=== PATIENT | male | born 1995 | race Caucasian/White ===

== ENCOUNTER 2022-07-05 11:03 | Emergency (ER) | payer OTHER, SELFPAY ==
[2022-07-05 11:10] VITALS: BP 153/86; PULSE 107; RESP 16; TEMP 36.3; O2SAT 98
--- NOTE | 2022-07-05 11:32 | ED.URI ---
HPI - URI/Sore Throat General Chief Complaint: Nausea/Vomiting/Diarrhea Stated Complaint: flu symptoms Time Seen by Provider: 07/05/22 11:20 Source: patient and RN notes reviewed History of Present Illness HPI Narrative: Patient is a 27-year-old male who presents to urgent care with complaints of diarrhea, nausea and body aches for 3 days. Patient states that the last thing he ate prior to symptoms starting was tacos. States that he came in today for a work note. States that his symptoms have nearly resolved. Denies any abdominal pain, fever, vomiting. No other acute complaints. No acute distress noted. Patient aware of the plan of care. Some parts of this dictation were generated by voice recognition software and may contain typographical and/or grammatical inaccuracies. Related Data Allergies Allergy/AdvReac Type Severity Reaction Status Date / Time No Known Allergies Allergy Verified 07/05/22 11:39 Review of Systems Review of Systems: CONSTITUTIONAL: Denies fever, chills, or sweats. EYES: Denies visual changes, redness, or discharge. ENT: Denies rhinorrhea, congestion, sore throat, or otalgia. CARDIOVASCULAR: Denies chest pain, palpitations, or edema. RESPIRATORY: Denies cough or dyspnea. GASTROINTESTINAL: Reports of resolving nausea, vomiting and diarrhea GENITOURINARY: Denies dysuria or hematuria. SKIN: Denies rash or itching. MUSCULOSKELETAL: Denies back pain, joint pain, or myalgia. NEUROLOGIC: Denies headache, numbness, or weakness. All other systems reviewed are negative, except as documented in HPI. PMFSH Comments At the time of my signature, I reviewed and agree with the nursing past medical, surgical, social, and family history. There is no relevant family history pertinent to the patient complaint. Exam Narrative: GENERAL: This is a well-nourished, well-developed patient, in no apparent distress. HEAD: normocephalic, atraumatic. EYES: PERRL. Sclera clear/white. Vision is grossly intact. EARS: External ears normal, auditory canals clear and without drainage, TMs normal without perforation. Hearing grossly intact. NOSE: External nose normal with no obvious nasal discharge, nares without redness, no rhinorrhea. THROAT: Mucous membranes moist, posterior pharynx clear. Mild postnasal drainage NECK: Neck supple, non-tender CARDIOVASCULAR: Regular rate and rhythm RESPIRATORY: Clear to auscultation. Breath sounds equal bilaterally. No wheezes, rales, or rhonchi. GASTROINTESTINAL: Abdomen soft, mild lower abdominal tenderness, nondistended. Bowel sounds are active. SKIN: warm, intact with no suspicious lesions or rash, good texture and turgor. NEURO: awake, alert, and oriented to person, place and time. There were no obvious focal neurologic abnormalities. EXTREMITIES: No clubbing, cyanosis, or edema. Course Course Level of Care: Express Care Visit Vital Signs Vital signs: Vital Signs Temperature 97.3 F L 07/05/22 11:10 Pulse Rate 107 H 07/05/22 11:10 Respiratory Rate 16 07/05/22 11:10 Blood Pressure 153/86 H 07/05/22 11:10 Pulse Oximetry 98 07/05/22 11:10 Oxygen Delivery Room Air 07/05/22 11:10 Temperature 97.3 F L 07/05/22 11:10 Pulse Rate 107 H 07/05/22 11:10 Respiratory Rate 16 07/05/22 11:10 Blood Pressure 153/86 H 07/05/22 11:10 Pulse Oximetry 98 07/05/22 11:10 Oxygen Delivery Room Air 07/05/22 11:10 Reviewed- Patient is informed that they may have pre-hypertension or hypertension based on a blood pressure reading in the department. I recommend the patient call the primary care provider listed on their discharge instructions or a physician of their choice this week to arrange follow-up for further evaluation of possible pre-hypertension or hypertension. MDM - URI/Sore Throat MDM Narrative Medical decision making narrative: Advised patient to eat a bland diet for the next 3-5 days and increase water intake. Use [id number] Pepto-Bismol or Imodium as need
== END 2022-07-05 11:55 | disposition home or self-care (01) ==
PROVIDERS: Emergency Provider Nurse Practitioner Family; PCP Family Medicine
DX: K52.9 Noninfective gastroenteritis and colitis, unspecified (principal)
CPT/HCPCS: 99213; G0463

== ENCOUNTER 2022-09-21 18:51 | Emergency (ER) | payer OTHER, SELFPAY ==
--- NOTE | 2022-09-21 18:53 | ED.URI ---
HPI - URI/Sore Throat General Chief Complaint: Upper Respiratory Infection Stated Complaint: wheezing / sob Time Seen by Provider: 09/21/22 18:53 Source: patient and RN notes reviewed History of Present Illness HPI Narrative: Patient is a 27-year-old male who presents to urgent care with complaints of congestion, wheezing and shortness of breath. Patient states that for approximately 2 weeks he had a lot of nasal congestion and sinus pressure. Patient states that last night he developed wheezing some shortness of breath. Patient has been taking DayQuil and NyQuil. Denies any fevers. States that he also forgot to take his blood pressure medication this morning. Denies any chest discomfort. No other acute complaints. No acute distress noted. Patient aware of the plan of care. Some parts of this dictation were generated by voice recognition software and may contain typographical and/or grammatical inaccuracies. Related Data Home Medications Medication Instructions Recorded Confirmed lisinopril 10 mg tablet 10 mg PO DAILY 09/21/22 09/21/22 Allergies Allergy/AdvReac Type Severity Reaction Status Date / Time No Known Allergies Allergy Verified 09/21/22 18:59 Review of Systems Review of Systems: CONSTITUTIONAL: Denies fever, chills, or sweats. EYES: Denies visual changes, redness, or discharge. ENT: Reports postnasal drainage and sinus congestion CARDIOVASCULAR: Denies chest pain, palpitations, or edema. RESPIRATORY: Reports dry cough, wheezing and shortness of breath GASTROINTESTINAL: Denies abdominal pain, nausea, vomiting, or diarrhea. GENITOURINARY: Denies dysuria or hematuria. SKIN: Denies rash or itching. MUSCULOSKELETAL: Denies back pain, joint pain, or myalgia. NEUROLOGIC: Denies headache, numbness, or weakness. All other systems reviewed are negative, except as documented in HPI. PMFSH Comments At the time of my signature, I reviewed and agree with the nursing past medical, surgical, social, and family history. There is no relevant family history pertinent to the patient complaint. Exam Narrative: GENERAL: This is a well-nourished, well-developed patient, in no apparent distress. HEAD: normocephalic, atraumatic. EYES: PERRL. Sclera clear/white. Vision is grossly intact. EARS: External ears normal, auditory canals clear and without drainage, TMs normal without perforation. Hearing grossly intact. NOSE: External nose normal with no obvious nasal discharge, nares without redness, no rhinorrhea. THROAT: Mucous membranes moist, moderate postnasal drainage NECK: Neck supple CARDIOVASCULAR: Regular rate and rhythm RESPIRATORY: Inspiratory and expiratory wheezes throughout with dry cough noted on exam. SKIN: warm, intact with no suspicious lesions or rash, good texture and turgor. NEURO: awake, alert, and oriented to person, place and time. There were no obvious focal neurologic abnormalities. EXTREMITIES: No clubbing, cyanosis, or edema. Course Course Level of Care: Express Care Visit Vital Signs Vital signs: Vital Signs Temperature 99.8 F H 09/21/22 18:58 Pulse Rate 119 H 09/21/22 18:58 Respiratory Rate 20 09/21/22 18:58 Blood Pressure 190/102 H 09/21/22 18:58 Pulse Oximetry 95 09/21/22 18:58 Oxygen Delivery Room Air 09/21/22 18:58 Temperature 99.8 F H 09/21/22 18:58 Pulse Rate 119 H 09/21/22 18:58 Respiratory Rate 20 09/21/22 18:58 Blood Pressure 190/102 H 09/21/22 18:58 Pulse Oximetry 95 09/21/22 18:58 Oxygen Delivery Room Air 09/21/22 18:58 Reviewed- Patient is informed that they may have pre-hypertension or hypertension based on a blood pressure reading in the department. I recommend the patient call the primary care provider listed on their discharge instructions or a physician of their choice this week to arrange follow-up for further evaluation of possible pre-hypertension or hypertension. MDM - URI/Sore Throat MDM Narrative Medical decision
[2022-09-21 18:58] VITALS: BP 190/102; PULSE 119; RESP 20; TEMP 37.7; O2SAT 95
== END 2022-09-21 19:15 | disposition home or self-care (01) ==
PROVIDERS: Emergency Provider Nurse Practitioner Family; PCP Family Medicine
DX: J40 Bronchitis, not specified as acute or chronic (principal); I10 Essential (primary) hypertension; Z86.16 Personal history of COVID-19
CPT/HCPCS: 99213; G0463

== ENCOUNTER 2022-10-13 14:00 | Emergency (ER) | payer OTHER, SELFPAY ==
[2022-10-13 14:05] VITALS: BP 142/84; PULSE 102; RESP 16; TEMP 36.3; O2SAT 98
--- NOTE | 2022-10-13 14:13 | ED.ABDPAIN ---
HPI - Abdominal Pain General Chief Complaint: Abdominal Pain Stated Complaint: Diarrhea/Abdominal Pain Source: patient and RN notes reviewed History of Present Illness HPI narrative: 27 yo M presents to urgent care with complaints of diarrhea x 4 days. Pt states his girlfriend had this too but hers resolved after a couple days. Pt reports associated mid abdominal cramping. Pt states he had some nausea the other day. Denies any fevers, chills, vomiting, chest pain, SOB, or dizziness. Pt has attempted taking Pepto Bismol and anti-diarrheal meds at home without relief. Pt does state he was on doxycycline a couple weeks ago. Related Data Home Medications Medication Instructions Recorded Confirmed lisinopril 10 mg tablet 10 mg PO DAILY 09/21/22 10/13/22 loratadine 10 mg tablet (Claritin) 10 mg PO DAILY 10/13/22 10/13/22 Allergies Allergy/AdvReac Type Severity Reaction Status Date / Time No Known Allergies Allergy Verified 10/13/22 14:17 Review of Systems Review of Systems: Pertinent positives and pertinent negatives per HPI. PMFSH Comments At the time of my signature, I reviewed and agree with the nursing past medical, surgical, social, and family history. There is no relevant family history pertinent to the patient complaint. Exam Narrative: GENERAL: This is a well-nourished, well-developed patient, in no apparent distress. HEAD: normocephalic, atraumatic. EYES: Sclera clear/white. Vision is grossly intact. EARS: External ears normal, auditory canals clear and without drainage. Hearing grossly intact. NOSE: External nose normal with no obvious nasal discharge, nares without redness, no rhinorrhea. THROAT: Mucous membranes moist, posterior pharynx clear. NECK: Neck supple, non-tender without lymphadenopathy, masses or thyromegaly. CARDIOVASCULAR: Regular rate and rhythm without murmurs, gallops, or rubs. RESPIRATORY: Clear to auscultation. Breath sounds equal bilaterally. No wheezes, rales, or rhonchi. GASTROINTESTINAL: Abdomen soft, non-tender, nondistended. Bowel sounds are active. No hepato-splenomegaly, or palpable masses. No guarding. SKIN: warm, intact with no suspicious lesions or rash, good texture and turgor. NEURO: awake, alert, and oriented to person, place and time. There were no obvious focal neurologic abnormalities. EXTREMITIES: No clubbing, cyanosis, or edema. No joint tenderness, effusion, or edema noted. BACK: Nontender without deformity or crepitus. No flank tenderness. Course Course Level of Care: Express Care Visit Vital Signs Vital signs: Vital Signs Temperature 97.3 F L 10/13/22 14:05 Pulse Rate 102 H 10/13/22 14:05 Respiratory Rate 16 10/13/22 14:05 Blood Pressure 142/84 H 10/13/22 14:05 Pulse Oximetry 98 10/13/22 14:05 Oxygen Delivery Room Air 10/13/22 14:05 Temperature 97.3 F L 10/13/22 14:18 Pulse Rate 102 H 10/13/22 14:18 Respiratory Rate 16 10/13/22 14:18 Blood Pressure 142/84 H 10/13/22 14:18 Pulse Oximetry 98 10/13/22 14:18 Oxygen Delivery Room Air 10/13/22 14:18 Reviewed MDM - Abdominal Pain MDM Narrative Medical decision making narrative: You've been diagnosed with a viral illness that would not require antibiotics at this time. You may take Imodium for diarrhea and the Bentyl for abdominal cramping. If you would like to eat food, you should follow the BRAT diet (bananas, rice, applesauce, and toast, or things of the like). If you develop any new or worsening symptoms, you should go to the emergency dept without hesitation. 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 Differential Diagnosis Differential diagnosis: Likely gastroenteritis, small bowel obstruction and other (food poisoning, ) Critical Care Time Critical Care Time Critical Care Time: No Discharge Plan Discharge Clinical Impression: Gastroenteritis Patient Disposition: Home, Self-Care Condition: Stable Instructions: Gastroenteritis (DC) Add
[2022-10-13 14:18] VITALS: BP 142/84; PULSE 102; RESP 16; TEMP 36.3; O2SAT 98
== END 2022-10-13 14:35 | disposition home or self-care (01) ==
PROVIDERS: Emergency Provider Nurse Practitioner Family; PCP Family Medicine
DX: K52.9 Noninfective gastroenteritis and colitis, unspecified (principal); Z20.822 Contact with and (suspected) exposure to COVID-19
CPT/HCPCS: 87426; 99213; C9803; G0463

== ENCOUNTER 2023-09-21 13:50 | Emergency (ER) | payer OTHER, SELFPAY ==
[2023-09-21 13:59] VITALS: BP 133/63; PULSE 118; RESP 24; TEMP 37.7; O2SAT 94
--- NOTE | 2023-09-21 14:22 | ED.GENADULT ---
HPI - General Adult General Chief complaint: Unspecified Stated complaint: Heart rate high/blood pressure high Time Seen by Provider: 09/21/23 14:10 Source: patient, RN notes reviewed and old records reviewed Mode of arrival: ambulatory Limitations: no limitations History of Present Illness HPI narrative: 28 year old male presents to [facility] care with complaints of feeling hot and having headache, not feeling well at work today and so he went to medical. He was told that his blood pressure and his heart rate were elevated and he needed to go get checked out. Patient reports history of hypertension and had been on Lisinopril but he stopped his medication about a year ago. Patient reports that he has no chest pain admits to some shortness of breath with exertion states is normal for him, denies any history of asthma.Patient is morbidly obese, he reports that he drinks 4-5 sodas daily and that he chews tobacco. 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 Patient states that he awoke with a tickle in his throat this morning and he did have headache today and noted 99.9F temp at time of triage. Patient did call [email or web address] office and did get an appointment for new patient visit on November 07 at 1300 while he was in clinic. MD complaint: elevated blood pressure, increased heart rate, headache, temp Onset (ago): day(s) (today at work not feeling well) Treatments prior to arrival: NSAID (this morning for headache) Related Data Allergies Allergy/AdvReac Type Severity Reaction Status Date / Time No Known Allergies Allergy Verified 10/13/22 14:17 Review of Systems Review of Systems: CONSTITUTIONAL: Denies known fever, no chills, positive for sweats. EYES: Denies visual changes, redness, or discharge. ENT: Denies rhinorrhea, congestion,states tickle in throat, no otalgia. CARDIOVASCULAR: Denies chest pain, palpitations, or edema. RESPIRATORY: Denies cough admits to some dyspnea with exertion. GASTROINTESTINAL: Denies abdominal pain, nausea, vomiting, or diarrhea. GENITOURINARY: Denies dysuria or hematuria. SKIN: Denies rash or itching. MUSCULOSKELETAL: Denies back pain, joint pain, or myalgia. NEUROLOGIC: Reports headache, no numbness, or weakness. PSYCHIATRIC: Denies anxiety or depression. All systems reviewed & are unremarkable except as noted in HPI and below PMFSH Past Medical History Medical History (Updated 09/22/23 @ 12:28 by Mariam Rodriguez NP) Hypertension Morbid obesity with BMI of 45.0-49.9, adult Seasonal allergies Family History Family History (Updated 09/22/23 @ 12:30 by Mariam Rodriguez NP) Other Diabetes mellitus Heart disease Hypertension Social History Social History (Updated 09/22/23 @ 12:17 by Mariam Rodriguez NP) Tobacco type: smokeless tobacco Smokeless tobacco user: chewing tobacco Alcohol intake: current Alcohol use details: social Substance use type: does not use Living arrangements: with family Gender identity (if verbalized by the patient): Male Comments At time of signature, agree with nursing past medical, surgical, social and family history. There is no relevant family history pertinent to the presenting complaint Exam Narrative: GENERAL: Well-appearing, well-nourished, morbidly obese,and in no acute distress. HEAD: Normocephalic, atraumatic. EYES: PERRLA and EOMI. ENT: Nares clear, no rhinorrhea or epistaxis. Mucous membranes moist.TM's normal throat pink with no swelling NECK: Supple. no lymphadenopathy CHEST: Clear to auscultation. No respiratory distress. no cough noted SAO2 94% on room air, speaks in full sentences admits to some dyspnea with exertion at times. HEART: Regular rate and rhythm. No murmur heard. Normal peripheral pulses. ABDOMEN: Soft, nontender, nondistended, normal active bowel sounds. EXTREMITIES: Normal range of motion. No edema. SKIN: Warm, dry, no rash. NEURO: No focal deficits. Alert and oriented x3. admits to headac
[2023-09-21 14:51] LABS: Glucose Point of Care 123 mg/dl (65-105)
== END 2023-09-21 15:13 | disposition home or self-care (01) ==
PROVIDERS: Emergency Provider Registered Nurse
DX: I10 Essential (primary) hypertension (principal); Z91.148 Patient's other noncompliance with medication regimen for other reason; E66.01 Morbid (severe) obesity due to excess calories; Z68.43 Body mass index [BMI] 50.0-59.9, adult; Z20.822 Contact with and (suspected) exposure to COVID-19; F17.220 Nicotine dependence, chewing tobacco, uncomplicated
CPT/HCPCS: 82948; 87081; 87426; 87804; 87880; 99213; G0463